=== PATIENT | male | born 1990 | race Caucasian/White ===

== ENCOUNTER 2021-10-06 16:52 | Inpatient (IN) | payer OTHER ==
[2021-10-06 17:51] LABS: #Eosinphils 0.4 thou/uL (0.0-0.7); #Lymphocytes 1.4 thou/uL (1.20-3.40); #Monocytes 0.8 thou/uL (0.11-0.59); #Neutrophils 5.6 thou/uL (1.40-6.50); %Basophils 0.5 % (0.0-1.0); %Eosinophils 4.7 % (0.0-10.0); %Lymphocytes 17.6 % (21.0-51.0); %Monocytes 9.1 % (0.0-10.0); %Neutrophils 68.1 % (42.0-75.0); Hemoglobin 8.2 g/dL (14.0-18.0); Mean Corpuscular HGB CONC 33.5 g/dL (32.0-36.0); Mean Corpuscular Hemoglobin 31.4 pg (27.0-31.0); Mean Corpuscular Volume 93.8 fL (78.0-98.0); Mean Platelet Volume 6.4 fL (7.4-10.4); Platelet Count 250 thou/uL (130-400); RBC Distribution Width 12.6 % (11.5-14.5); Red Blood Cell (RBC) Count 2.62 mill/uL (4.70-6.10); White Blood Cell (WBC) Count 8.2 thou/uL (4.8-10.8)
[2021-10-06 18:22] LABS: ALT (SGPT) 10 U/L (8-55); AST (SGOT) 9 U/L (5-34); Albumin 3.1 g/dL (3.5-5.0); Alkaline Phosphatase 53 U/L (40-110); Anion Gap 16 mmol/L (10-20); BUN (Urea Nitrogen) 62 mg/dL (8.9-20.6); Bilirubin, Total 0.4 mg/dL (0.2-1.2); Calc. Creatinine Clearance 0 mL/min (70-130); Calcium 8.7 mg/dL (7.8-10.44); Carbon Dioxide 17 mmol/L (22-29); Chloride 111 mmol/L (98-107); Globulin 2.7 g/dL (2.4-3.5); Glucose 109 mg/dL (70-105); Lipase 43 U/L (8-78); Potassium 4.7 mmol/L (3.5-5.1); Protein, Total 5.8 g/dL (6.0-8.3); Sodium 139 mmol/L (136-145)
[2021-10-06] MEDS ORDERED: Ferrous Sulfate 325 MG TAB PO SCH (21:00)
[2021-10-06 21:01] LABS: Bacteria/HPF None Seen HPF (None Seen); Bilirubin Negative (Negative); Blood, Urine 2+ (Negative); Clarity Clear (Clear); Glucose, Urine (Dipstick) Normal (Negative); Ketone, Urine Negative (Negative); Leukocyte Negative Leu/uL (Negative); Nitrite Negative (Negative); Protein, Urine (Dipstick) 300 mg/dL (Neg-Trace); Specific Gravity, Urine 1.014 (1.002-1.036); Squamous Epithelial 0-3 HPF (0-3); Urobilinogen Normal mg/dL (Less than 2)
[2021-10-06] MEDS ORDERED: Acetaminophen 500 MG TAB ONE (21:57)
[2021-10-06 22:08] LABS: Phosphorus 5.9 mg/dL (2.3-4.7)
[2021-10-07] MEDS ORDERED: Ondansetron ODT 4 MG TAB PO PRN (07:44)
[2021-10-07] MEDS ORDERED: Acetaminophen 500 MG TAB PO PRN (07:44)
[2021-10-07] MEDS ORDERED: Ondansetron PF 4 MG/2 ML Vial IVP PRN (07:44)
[2021-10-07] MEDS ORDERED: Sodium Chloride 0.9% 1,000 ML IV SCH (07:44)
[2021-10-07] MEDS ORDERED: hydrALAZINE 20 MG/ML VIAL SLOW IVP PRN (07:44)
[2021-10-07] MEDS ORDERED: NIFEdipine XL 30 MG TAB ONE (08:03)
[2021-10-07] MEDS ORDERED: Labetalol HCl 100 MG TAB ONE (08:03)
[2021-10-07] MEDS ORDERED: Famotidine 20 MG TAB ONE (08:08)
[2021-10-07] MEDS ORDERED: Folic Acid 1 MG TAB ONE (08:08)
[2021-10-07 08:32] LABS: Albumin 3.2 g/dL (3.5-5.0); Anion Gap 15 mmol/L (10-20); BUN (Urea Nitrogen) 57 mg/dL (8.9-20.6); BUN/Creatinine Ratio 7.87; Calc. Creatinine Clearance 0 mL/min (70-130); Calcium 8.7 mg/dL (7.8-10.44); Carbon Dioxide 18 mmol/L (22-29); Chloride 113 mmol/L (98-107); Glucose 133 mg/dL (70-105); Iron Binding Capacity, Total 218 mcg/dL (261-462); Phosphorus 5.6 mg/dL (2.3-4.7); Sodium 141 mmol/L (136-145)
[2021-10-07 08:33] LABS: Iron 35 ug/dL (65-175)
[2021-10-07] MEDS ORDERED: Sodium Bicarbonate 150 MEQ in Dextrose 5% in Water 1,000 ML IV SCH (08:45)
[2021-10-07] MEDS: Labetalol HCl 100 MG TAB PO SCH ×2 (09:03→20:04)
[2021-10-07] MEDS: NIFEdipine XL 60 MG TAB PO SCH ×2 (09:03→20:05)
[2021-10-07] MEDS: Famotidine 20 MG TAB PO SCH ×2 (09:03→20:04)
[2021-10-07] MEDS: Folic Acid 1 MG TAB PO SCH (09:03)
[2021-10-07] MEDS: Sodium Bicarbonate Tab 325 MG TAB PO SCH ×3 (09:03→20:05)
[2021-10-07] MEDS ORDERED: Epoetin (ESRD) 10,000 UNITS/ML VIAL IVP SCH ×2 (09:30→14:15)
[2021-10-07] MEDS ORDERED: predniSONE 20 MG TAB PO SCH (09:30)
[2021-10-07 10:25] LABS: SARS-CoV-2 NAA Rapid Test Not Detected (NotDetected)
[2021-10-07] MEDS ORDERED: predniSONE 20 MG TAB ONE (10:41)
[2021-10-07] MEDS ORDERED: EPOETIN ALFA-EPBX (ESRD) 10,000 UNIT/ML VIAL IVP SCH (12:00)
[2021-10-07 12:31] VITALS: BMI 29.4
[2021-10-07] MEDS ORDERED: CEFAZOLIN 2 GM in Sodium Chloride 0.9% 100 ML IVPB SCH (13:15)
[2021-10-07] MEDS: Iron, Sodium Ferric Gluconate 250 MG in Sodium Chloride 0.9% 250 ML 250 ML IVPB SCH (14:47)
[2021-10-08 05:11] LABS: #Eosinphils 0.2 thou/uL (0.0-0.7); #Monocytes 0.6 thou/uL (0.11-0.59); #Neutrophils 6.4 thou/uL (1.40-6.50); %Basophils 0.5 % (0.0-1.0); %Eosinophils 2.1 % (0.0-10.0); %Lymphocytes 11.7 % (21.0-51.0); %Monocytes 6.8 % (0.0-10.0); %Neutrophils 78.9 % (42.0-75.0); Hemoglobin 8.2 g/dL (14.0-18.0); Mean Corpuscular Hemoglobin 31.6 pg (27.0-31.0); Mean Corpuscular Volume 92.8 fL (78.0-98.0); Mean Platelet Volume 6.4 fL (7.4-10.4); Platelet Count 245 thou/uL (130-400); RBC Distribution Width 12.7 % (11.5-14.5); White Blood Cell (WBC) Count 8.1 thou/uL (4.8-10.8)
[2021-10-08 05:31] LABS: Anion Gap 16 mmol/L (10-20); BUN (Urea Nitrogen) 56 mg/dL (8.9-20.6); Calc. Creatinine Clearance 20 mL/min (70-130); Calcium 8.5 mg/dL (7.8-10.44); Carbon Dioxide 16 mmol/L (22-29); Chloride 112 mmol/L (98-107); Glucose 111 mg/dL (70-105); Sodium 139 mmol/L (136-145)
[2021-10-08] MEDS ORDERED: predniSONE 20 MG TAB PO SCH (08:00)
[2021-10-08] MEDS ORDERED: Midazolam HCl 2 mg/2 ml Vial ONE (11:37)
[2021-10-08] MEDS ORDERED: fentaNYL Citrate/PF 100 MCG/2 ML SYRINGE ONE ×2 (11:54→14:24)
[2021-10-08] MEDS ORDERED: Famotidine/PF 20 mg/2ml Vial ONE (11:54)
[2021-10-08] MEDS ORDERED: SUGAMMADEX SODIUM 200 MG/2 ML VIAL ONE (11:54)
[2021-10-08] MEDS ORDERED: Lidocaine 1% w/Epinephrine 1:100K 30 ML VIAL ONE (12:03)
[2021-10-08] MEDS ORDERED: Protamine Sulfate 50 MG/5 ML VIAL ONE (12:03)
[2021-10-08] MEDS ORDERED: Heparin 5,000 UNITS/ML VIAL ONE (12:03)
[2021-10-08] MEDS ORDERED: Bupivacaine PF 0.5% 30 ML VIAL ONE (12:03)
[2021-10-08] MEDS ORDERED: Heparin 10,000 UNITS/ 10 ML VIAL ONE (12:03)
[2021-10-08] MEDS ORDERED: Bupivacaine 0.25% HCL 30 ML VIAL ONE (12:05)
[2021-10-08] MEDS ORDERED: traMADol HCl 50 MG TAB PO PRN (12:19)
[2021-10-08] MEDS ORDERED: CEFAZOLIN 2 GM VIAL ONE (12:28)
[2021-10-08] MEDS ORDERED: Sodium Chloride 0.9% 100 ML ONE (12:28)
[2021-10-08] MEDS ORDERED: Ondansetron HCl/PF 4 MG/2 ML Vial IVP PRN (13:52)
[2021-10-08] MEDS ORDERED: Promethazine HCl 25 MG/ML VIAL IVPB PRN (13:52)
[2021-10-08] MEDS ORDERED: Promethazine HCl 25 MG/ML VIAL IM PRN (13:52)
[2021-10-08] MEDS ORDERED: Metoprolol Tartrate 5 MG/5 ML VIAL IVP PRN (14:15)
[2021-10-08] MEDS ORDERED: Meperidine HCl/PF 25 MG/ML VIAL ONE (14:30)
[2021-10-08] MEDS ORDERED: Metoprolol Tartrate 5 MG/5 ML VIAL ONE (14:33)
[2021-10-08 15:15] VITALS: BP 165/102; TEMP 97.5
[2021-10-08] MEDS: Labetalol HCl 100 MG TAB PO SCH (15:41)
[2021-10-08] MEDS: Folic Acid 1 MG TAB PO SCH (15:41)
[2021-10-08] MEDS: NIFEdipine XL 60 MG TAB PO SCH (15:42)
[2021-10-08] MEDS: Sodium Bicarbonate Tab 325 MG TAB PO SCH ×2 (15:42→16:24)
[2021-10-08 15:50] LABS: HBSAB Concentration Less than 8.00 mIU/mL; HBSAg Index 0.31 S/CO (0-0.99); Hep B Core Total Ab Non-Reactive (NonReactive); Hep B Core Total Index 0.03 S/CO (0-0.79); Hep B Surf AB Non-Reactive (NonReactive); Hep B Surf Ag Non-Reactive S/CO (NonReactive); Hep C IgG Ab Non-Reactive (NonReactive); Hep C Index 0.03 S/CO (0-0.79)
[2021-10-08] MEDS: Iron, Sodium Ferric Gluconate 250 MG in Sodium Chloride 0.9% 250 ML 250 ML IVPB SCH (16:23)
[2021-10-08] MEDS: Famotidine 20 MG TAB PO SCH (16:30)
[2021-10-09] MEDS ORDERED: Famotidine 20 MG TAB PO SCH (09:00)
[2021-10-13] MEDS ORDERED: Ergocalciferol 1.25 MG(50,000 UNITS) CAP PO SCH (09:00)
== END 2021-10-08 19:17 | disposition home or self-care (01) | DRG 674 ==
LOC: ERS 16:52 → ERHOLD 21:45 → 2SW 10-07 12:09
PROVIDERS: ADMIT Family Medicine; ATTEND Physician Assistant
PROC: 031B0ZF Bypass Right Radial Artery to Lower Arm Vein, Open Approach (ICD-10-PCS; principal; 2021-10-08)
PROC: 0WHG43Z Insertion of Infusion Device into Peritoneal Cavity, Percutaneous Endoscopic Approach (ICD-10-PCS; 2021-10-08)
PROC: 0DR Gastrointestinal System, Replacement (ICD-10-PCS; 2021-10-08)
DX: N02.8 Recurrent and persistent hematuria with other morphologic changes (principal); E87.2 Acidosis; N17.9 Acute kidney failure, unspecified; Z20.822 Contact with and (suspected) exposure to COVID-19; F41.9 Anxiety disorder, unspecified; F32.A Depression, unspecified; N18.6 End stage renal disease; I10 Essential (primary) hypertension; D63.1 Anemia in chronic kidney disease; Z79.899 Other long term (current) drug therapy; Z88.2 Allergy status to sulfonamides
CPT/HCPCS: 36415; 71045; 80048; 80053; 80069; 81003; 81015; 82728; 83540; 83550; 83690; 84100; 85025; 86704; 87340; 93005; 93970; C1776; J0360; J0690; J1644; J2175; J2250; J2720; J2916; J3490; J7050; J7070; J7512; Q4081; S0020; S0028; U0002

== ENCOUNTER 2023-03-03 21:43 | Emergency (ER) | payer OTHER ==
[2023-03-03 22:15] LABS: #Eosinphils 0.3 thou/uL (0.0-0.7); #Monocytes 1.4 thou/uL (0.11-0.59); #Neutrophils 7.5 thou/uL (1.40-6.50); %Basophils 0.3 % (0.0-1.0); %Eosinophils 2.3 % (0.0-10.0); %Lymphocytes 25.6 % (21.0-51.0); %Monocytes 11.4 % (0.0-10.0); %Neutrophils 60.1 % (42.0-75.0); Hematocrit 36.5 % (42.0-52.0); Hemoglobin 12.9 g/dL (14.0-18.0); Mean Corpuscular HGB CONC 35.3 g/dL (32.0-36.0); Mean Corpuscular Hemoglobin 33.7 pg (27.0-31.0); Mean Corpuscular Volume 95.3 fl (78.0-98.0); Mean Platelet Volume 10.2 fL (7.4-10.4); Platelet Count 260 10x3/uL (130-400); RBC Distribution Width 13.6 % (11.5-14.5); Red Blood Cell (RBC) Count 3.83 mill/uL (4.70-6.10); White Blood Cell (WBC) Count 12.4 10x3/uL (4.8-10.8)
[2023-03-03 22:41] LABS: Troponin I Less than 0.010 ng/mL (< 0.028)
[2023-03-03 22:46] LABS: ALT (SGPT) 23 U/L (8-55); AST (SGOT) 24 U/L (5-34); Albumin 5.5 g/dL (3.5-5.0); Alkaline Phosphatase 77 U/L (40-110); Anion Gap 22 mmol/L (10-20); BUN (Urea Nitrogen) 46 mg/dL (8.9-20.6); Bilirubin, Total 0.5 mg/dL (0.2-1.2); Calcium 10.1 mg/dL (7.8-10.44); Carbon Dioxide 25 mmol/L (22-29); Chloride 97 mmol/L (98-107); Globulin 2.9 g/dL (2.4-3.5); Glucose 96 mg/dL (70-105); Protein, Total 8.4 g/dL (6.0-8.3); Sodium 137 mmol/L (136-145)
[2023-03-03 22:53] LABS: Potassium 7.3 mmol/L (3.5-5.1)
[2023-03-03] MEDS ORDERED: Calcium Chloride 1 GM/10 ML Abboject SYRINGE ONE (23:26)
[2023-03-03] MEDS ORDERED: Sodium Bicarb 50 MEQ/50 ML VIAL ONE (23:26)
[2023-03-03] MEDS ORDERED: Insulin Regular 300 UNITS/3 ML VIAL ONE (23:27)
[2023-03-03] MEDS ORDERED: Dextrose 50% Abboject 50 ML SYRINGE SLOW IVP SCH (23:45)
[2023-03-03] MEDS ORDERED: LOKELMA 10 GM PACKET PO SCH (23:45)
[2023-03-03] MEDS ORDERED: Ondansetron PF 4 MG/2 ML Vial ONE (23:48)
[2023-03-03 23:49] LABS: Calc. Creatinine Clearance 0 mL/min (70-130); Estimated GFR 7
[2023-03-04 00:27] LABS: ALT (SGPT) 24 U/L (8-55); AST (SGOT) 23 U/L (5-34); Acetaminophen Less than 10 mcg/mL (10.0-30.0); Albumin 5.2 g/dL (3.5-5.0); Alcohol Less than 10.0 mg/dL (Less than 10); Alkaline Phosphatase 74 U/L (40-110); Anion Gap 22 mmol/L (10-20); BUN (Urea Nitrogen) 48 mg/dL (8.9-20.6); Bilirubin, Total 0.4 mg/dL (0.2-1.2); Calc. Creatinine Clearance 0 mL/min (70-130); Calcium 9.8 mg/dL (7.8-10.44); Carbon Dioxide 23 mmol/L (22-29); Chloride 98 mmol/L (98-107); Estimated GFR 7; Globulin 2.9 g/dL (2.4-3.5); Glucose 95 mg/dL (70-105); Lipase 135 U/L (8-78); Protein, Total 8.1 g/dL (6.0-8.3); Salicylate Less than 8.0 mg/dL (15.0-30.0); Sodium 136 mmol/L (136-145)
[2023-03-04 00:33] LABS: Potassium 7.2 mmol/L (3.5-5.1)
[2023-03-04 04:38] LABS: Hep B Core Total Ab Non-Reactive (NonReactive); Hep B Core Total Index 0.08 S/CO (0-0.79); Hep B Surf Ag Non-Reactive S/CO (NonReactive); Hep C IgG Ab Non-Reactive S/CO (NonReactive); Hep C Index 0.05 S/CO (0-0.79)
[2023-03-04 04:41] LABS: HBSAB Concentration 275.12 mIU/mL; Hep B Surf AB Reactive (NonReactive)
== END 2023-03-04 07:31 | disposition home or self-care (01) ==
LOC: ERS 21:43
DX: E87.5 Hyperkalemia (principal); I12.0 Hypertensive chronic kidney disease with stage 5 chronic kidney disease or end stage renal disease; N18.6 End stage renal disease; F17.290 Nicotine dependence, other tobacco product, uncomplicated; Z99.2 Dependence on renal dialysis
CPT/HCPCS: 36415; 71045; 80053; 80307; 82550; 83690; 83880; 84484; 85025; 86704; 90935; 93005; 94760; 96361; 96374; 96375; G0257; J1815; J2405; J7999